=== PATIENT | male | born 1975 | race Caucasian/White ===

== ENCOUNTER 2018-07-07 03:21 | Observation (INO) | payer BC ==
[2018-07-07] MEDS ORDERED: ASPIRIN 81 MG PO STA (03:39)
--- NOTE | 2018-07-07 03:41 | ED ---
Chest Pain HPI - General Chief Complaint: Chest Pain Stated Complaint: chest pain Time Seen by Provider: 07/07/18 03:39 Source: patient Mode of arrival: ambulatory Limitations: no limitations - History of Present Illness Initial Comments: This patient's 42-year-old man who presents to be evaluated for chest pain. The patient states that he has not been feeling right all day. He had gone to work and then noted that he was having some upper abdominal pain and nausea. Later, before he left work he noticed that there was some left-sided chest discomfort. The patient states that he was also having some nausea. States she may also have briefly felt sweaty. When the symptoms did not resolve after arriving home he felt he should be evaluated here. Patient denies having any previous stress test or heart catheterization. MD Complaint: chest pain Onset/Timin -: hour(s) Onset: other (While at work) Pain Location: left chest Pain Radiation: none Severity: moderate Quality: heaviness Consistency: constant Improves With: nothing Worsens With: nothing Anginal Symptoms: nausea Treatments Prior to Arrival: none - Related Data Allergies Allergy/AdvReac Type Severity Reaction Status Date / Time No Known Allergies Allergy Verified 07/07/18 04:14 Review of Systems ROS Statement: Those systems with pertinent positive or pertinent negative responses have been documented in the HPI. ROS Other: All systems not noted in ROS Statement are negative. Constitutional: Denies: fever, chills Respiratory: Denies: cough, dyspnea Cardiovascular: Reports: as per HPI, chest pain. Denies: palpitations, edema, syncope Gastrointestinal: Reports: as per HPI, abdominal pain, nausea. Denies: vomiting , diarrhea Genitourinary: Denies: dysuria, hematuria Musculoskeletal: Denies: back pain Skin: Denies: rash Neurological: Denies: headache, weakness, numbness EKG Findings - EKG Results: EKG: interpreted by ERMD, sinus rhythm (Rate 91 bpm), normal axis, normal ST/T - Blocks, [place], Hypertrophy, ST Abn: AV and intraventricular conduction: right bundle branch block (fixed/ intermittent, complete/incomplete) (Incomplete) Chamber hypertrophy or enlargement: left ventricular hypertrophy or enlargement (LVE) Past Medical History Past Medical History: Hyperlipidemia Additional Past Medical History / Comment(s): HIV History of Any Multi-Drug Resistant Organisms: None Reported Past Surgical History: Hernia Repair Past Psychological History: No Psychological Hx Reported Smoking Status: Current every day smoker Past Alcohol Use History: Occasional Past Drug Use History: Methamphetamine General Exam Limitations: no limitations General appearance: alert, in no apparent distress Head exam: Present: atraumatic, normocephalic Eye exam: Present: normal appearance. Absent: scleral icterus, conjunctival injection ENT exam: Present: normal oropharynx Neck exam: Present: normal inspection Respiratory exam: Present: normal lung sounds bilaterally. Absent: respiratory distress, wheezes, rales, rhonchi, stridor Cardiovascular Exam: Present: regular rate, normal rhythm, normal heart sounds. Absent: systolic murmur, diastolic murmur, rubs, gallop GI/Abdominal exam: Present: soft. Absent: distended, tenderness, guarding, rebound, rigid, mass Extremities exam: Present: normal inspection, normal capillary refill. Absent: pedal edema, calf tenderness Back exam: Present: normal inspection. Absent: CVA tenderness (R), CVA tenderness (L) Neurological exam: Present: alert Skin exam: Present: warm, dry, intact, normal color. Absent: rash Course Vital Signs 07/07/18 07/07/18 07/07/18 03:29 03:30 05:34 Temperature 98.3 F Pulse Rate 97 64 Pulse Rate [ 74 Customer Account Administrator ] Respiratory 19 18 Rate Blood Pressure 149/89 119/68 O2 Sat by Pulse 100 100 Oximetry 07/07/18 06:05 Temperature Pulse Rate 68 Pulse Rate [ Customer Account Administrator ] Respiratory 18 Rate Blood Pressure 113/77 O2 Sat by Pulse 99 Oximetry Disposition Clinical Impression: Chest pain Disposition: ADMITTED IP TO THIS HOSP Condition: Good Instructions: Chest Pain (ED) Is patient prescribed a controlled substance at d/c from ED?: No Referrals: Nonstaff,Physician [REFERRING] - 1-2 days
[2018-07-07 04:12] LABS: Basophils # (A) 0.1 k/uL (0-0.2); Basophils % (A) 1 %; Eosinophils # (A) 0.3 k/uL (0-0.7); Eosinophils % (A) 4 %; HCT 46.3 % (39.0-53.0); HGB 16.1 gm/dL (13.0-17.5); Lymphocytes # (A) 2.2 k/uL (1.0-4.8); Lymphocytes % (A) 26 %; MCH 34.5 pg (25.0-35.0); MCHC 34.8 g/dL (31.0-37.0); MCV 99.2 fL (80.0-100.0); Monocytes # (A) 0.6 k/uL (0-1.0); Monocytes % (A) 7 %; Neutrophils % (A) 60 %; Platelet Count 257 k/uL (150-450); RBC 4.67 m/uL (4.30-5.90); RDW 12.5 % (11.5-15.5); WBC 8.4 k/uL (3.8-10.6)
[2018-07-07 04:19] LABS: ALT 33 U/L (21-72); AST 27 U/L (17-59); Albumin 4.8 g/dL (3.5-5.0); Alkaline Phosphatase 76 U/L (38-126); Anion Gap 10 mmol/L; Blood Urea Nitrogen 13 mg/dL (9-20); Calcium 10.3 mg/dL (8.4-10.2); Carbon Dioxide 27 mmol/L (22-30); Chloride 102 mmol/L (98-107); Glucose 128 mg/dL (74-99); Magnesium 2.1 mg/dL (1.6-2.3); Sodium 139 mmol/L (137-145); Total Bilirubin 0.7 mg/dL (0.2-1.3); Total Protein 7.7 g/dL (6.3-8.2)
--- NOTE | 2018-07-07 04:19 | XR ---
EXAM: XR Chest, 1 View CLINICAL HISTORY: Chest pain TECHNIQUE: Frontal view of the chest. COMPARISON: No relevant prior studies available. FINDINGS: Lungs: Unremarkable. No consolidation. Pleural space: Unremarkable. No pneumothorax. Heart: Unremarkable. No cardiomegaly. Mediastinum: Unremarkable. Bones/joints: Unremarkable. IMPRESSION: Normal chest x-ray.
[2018-07-07 04:29] LABS: Creatine Kinase 243 U/L (55-170)
[2018-07-07 04:31] LABS: INR 0.9 (<1.2); Partial Thromboplastin Time 22.4 sec (22.0-30.0)
[2018-07-07 04:43] LABS: Creatine Kinase MB 2.1 ng/mL (0.0-2.4); Troponin I <0.012 ng/mL (0.000-0.034)
[2018-07-07 05:23] LABS: Amylase 38 U/L (30-110); Lipase 133 U/L (23-300)
[2018-07-07 05:38] VITALS: RESP 18
[2018-07-07] MEDS ORDERED: NITROGLYCERIN SL TABS 0.4 MG TAB SUBLINGUAL PRN (06:03)
[2018-07-07 07:49] VITALS: BMI 20.9
[2018-07-07 08:16] VITALS: BP 123/73; PULSE 67; TEMP 98.2
[2018-07-07 09:34] LABS: Creatine Kinase 178 U/L (55-170)
[2018-07-07 09:47] LABS: Creatine Kinase MB 1.4 ng/mL (0.0-2.4); Troponin I <0.012 ng/mL (0.000-0.034)
--- NOTE | 2018-07-07 11:36 | P.CRDCN ---
History of Present Illness History of present illness: This is a pleasant 42-year-old male past medical history significant for dyslipidemia and chronic nicotine dependence. He states he smoke 1.2 pack per day for 25 years. He denies history of coronary artery disease, hypertension or diabetes mellitus. He has never seen a sales engineering manager for any reason. We have been asked to see him in consultation for chest pain. He states he was at work yesterday in his normal state of health. He works as a hilo crew truck driver. While riding on his hilo he started feeling a tight squeezing sensation in this left precordial region. The pain was constant and persistent all day yesterday with no specific aggravating or alleviating factors. There was no radiation to his arm, back, neck or jaw. He did feel mildly short of breath all day as well as intermittent nausea and a clammy sensation to both hands. He denies worsening pain with deep inspiration. He denies dizziness, palpitations or vomiting. He has been coughing more so in the last few days than usual. No sputum production. At the time of my exam he continues to feel an achy discomfort in his chest. EKG reveals right bundle branch block pattern with left ventricular hypertrophy. Chest x-ray negative for an acute cardiopulmonary process. Laboratory data reviewed, WBC 8.4, hemoglobin 16.1, platelets 257, d-dimer 0.24 , sodium 139, potassium 4.0, creatinine 0.99, magnesium 2.1, cardiac enzymes negative 2. Current cardiac medications include atorvastatin 20 mg daily. At the time of my exam: CONSTITUTIONAL: Denies fever. Denies chills. EYES: Denies blurred vision. Denies vision changes. Denies eye pain. EARS, NOSE, MOUTH & THROAT: Denies headache. Denies sore throat. Denies ear pain. CARDIOVASCULAR: Complains of achy chest discomfort. Denies shortness of breath. Denies orthopnea. Denies PND. Denies palpitations. RESPIRATORY: Denies cough. GASTROINTESTINAL: Denies abdominal pain. Denies diarrhea. Denies constipation. Denies nausea. Denies vomiting. MUSCULOSKELETAL: Denies myalgias. INTEGUMENTARY: Denies pruitis. Denies rash. NEUROLOGIC: Denies numbness. Denies tingling. Denies weakness. PSYCHIATRIC: Denies anxiety. Denies depression. ENDOCRINE: Denies fatigue. Denies weight change. Denies polydipsia. Denies polyurina. GENITOURINARY: Denies burning, hematuria or urgency with micturation. HEMATOLOGIC: Denies history of anemia. Denies bleeding. Blood pressure 123/73 heart rate 67 afebrile 18 oxygen saturation on room air GENERAL: This is a 42-year-old male in no apparent distress at the time of my examination. HEENT: Head is atraumatic, normocephalic. Pupils are equal, round. Sclerae anicteric. Conjunctivae are clear. Mucous membranes of the mouth are moist. Neck is supple. There is no jugular venous distention. No carotid bruit is heard. LUNGS: Clear to auscultation no wheezes, rales or rhonchi. No chest wall tenderness is noted on palpation or with deep breathing. HEART: Regular rate and rhythm without murmurs, rubs or gallops. S1 and S2 heard. ABDOMEN: Soft, nontender. Bowel sounds are heard. No organomegaly noted. EXTREMITIES: No evidence of peripheral edema and no calf tenderness noted. VASCULAR: Radial and dorsalis pedis pulses palpated, no evidence of clubbing. NEUROLOGIC: Patient is awake, alert and oriented x3. ASSESSMENT Chest pain, atypical. An acute coronary event has been ruled out. Dyslipidemia Chronic nicotine dependence PLAN An acute coronary event has been ruled out. Obtain 2D echocardiogram and doppler study to assess cardiac structure and function. Perform stress echocardiogram to assess for stress induced ischemia. Check lipid panel. Smoking cessation recommended. If stress test is normal he is stable from a cardiac perspective. Thank you kindly for this consultation. Nurse Practitioner note has been reviewed, I agree with a documented findings and plan of care. Patient was seen and examined. Past Medical History Past Medical History: Hyperlipidemia Additional Past Medical History / Comment(s): HIV, kidney stones History of Any Multi-Drug Resistant Organisms: None Reported Past Surgical History: Hernia Repair Past Anesthesia/Blood Transfusion Reactions: No Reported Reaction Past Psychological History: No Psychological Hx Reported Smoking Status: Current every day smoker Past Alcohol Use History: Occasional Additional Past Alcohol Use History / Comment(s): pt states he does meth every once in awhile. pt states he has smoked since he was 18 and smokes around a 1/2 a pack per day. Past Drug Use History: Methamphetamine Medications and Allergies Home Medications Medication Instructions Recorded Confirmed Type Atorvastatin Calcium [Lipitor] 20 mg PO HS 12/18/18 12/18/18 History Elviteg/Cob/Emtri/Tenof Alafen 1 tab PO HS 07/07/18 07/07/18 History [Genvoya Tablet] Allergies Allergy/AdvReac Type Severity Reaction Status Date / Time No Known Allergies Allergy Verified 07/07/18 07:15 Physical Exam Vitals: Vital Signs Temp Pulse Pulse Resp BP BP Pulse Ox 07/07/18 07:20 98.2 F 67 18 123/73 96 07/07/18 06:05 68 18 113/77 99 07/07/18 05:34 64 18 119/68 100 07/07/18 03:30 74 07/07/18 03:29 98.3 F 97 19 149/89 100 Intake and Output 07/06/18 07/07/18 07/07/18 22:59 06:59 14:59 Other: Weight 62.596 kg 62.596 kg Results 07/07/18 03:45 07/07/18 03:45 Cardiac Enzymes 07/07/18 07/07/18 Range/Units 03:45 03:45 AST 27 (17-59) U/L CK-MB (CK-2) 2.1 (0.0-2.4) ng/mL Troponin I <0.012 (0.000-0.034) ng/mL Coagulation 07/07/18 Range/Units 03:45 PT 10.0 (9.0-12.0) sec APTT 22.4 (22.0-30.0) sec CBC 07/07/18 Range/Units 03:45 WBC 8.4 (3.8-10.6) k/uL RBC 4.67 (4.30-5.90) m/uL Hgb 16.1 (13.0-17.5) gm/dL Hct 46.3 (39.0-53.0) % Plt Count 257 (150-450) k/uL Comprehensive Metabolic Panel 07/07/18 Range/Units 03:45 Sodium 139 (137-145) mmol/L Potassium 4.0 (3.5-5.1) mmol/L Chloride 102 (98-107) mmol/L Carbon Dioxide 27 (22-30) mmol/L BUN 13 (9-20) mg/dL Creatinine 0.99 (0.66-1.25) mg/dL Glucose 128 H (74-99) mg/dL Calcium 10.3 H (8.4-10.2) mg/dL AST 27 (17-59) U/L ALT 33 (21-72) U/L Alkaline Phosphatase 76 (38-126) U/L Total Protein 7.7 (6.3-8.2) g/dL Albumin 4.8 (3.5-5.0) g/dL Current Medications Generic Name Dose Route Start Last Admin Trade Name Freq PRN Reason Stop Dose Admin Aspirin 325 mg 07/08/18 09:00 Aspirin PO DAILY DIAMANTE Nitroglycerin 0.4 mg 07/07/18 06:03 Nitrostat SUBLINGUAL Q5M PRN Chest Pain Intake and Output 07/06/18 07/07/18 07/07/18 22:59 06:59 14:59 Other: Weight 62.596 kg 62.596 kg Patient Weight 07/08/18 06:59 Weight 62.596 kg 07/07/18 03:45 07/07/18 03:45
[2018-07-07 12:14] LABS: Cholesterol 138 mg/dL (<200); HDL Cholesterol 45 mg/dL (40-60); LDL Cholesterol,Calculated 60 mg/dL (0-99); Triglycerides 163 mg/dL (<150)
--- NOTE | 2018-07-07 12:46 | ECHOF ---
Referral Reason: MEASUREMENTS -------- HEIGHT: 172.7 cm WEIGHT: 62.6 kg BP: 123/73 RVIDd: 2.3 cm (< 3.3) IVSd: 1.0 cm (0.6 - 1.1) LVIDd: 4.2 cm (3.9 - 5.3) LVPWd: 1.0 cm (0.6 - 1.1) IVSs: 1.1 cm LVIDs: 3.1 cm LVPWs: 1.3 cm LAESV Index (A-L): 17.62 ml/m Ao Diam: 3.2 cm (2.0 - 3.7) AV Cusp: 2.1 cm (1.5 - 2.6) LA Diam: 1.9 cm (2.7 - 3.8) MV E Kirill: 0.77 m/s MV DecT: 208 ms MV A Kirill: 0.57 m/s MV E/A Ratio: 1.35 RAP: 5.00 mmHg RVSP: 11.89 mmHg FINDINGS -------- Sinus rhythm. This was a technically good study. The left ventricular size is normal. Left ventricular wall thickness is normal. Overall left vent ricular systolic function is normal with, an EF between 55 - 60 %. The right ventricle is normal in size and function. Normal LA size by volume 22+/-6 ml/m2. The right atrium is normal in size. The aortic valve is trileaflet, and appears structurally normal. No aortic stenosis or regurgitation. The mitral valve leaflets are mildly thickened. There is trace mitral regurgitation. Trace tricuspid regurgitation present. Right ventricular systolic pressure is normal at < 35 mmHg. There is no evidence of pulmonary hypertension. The pulmonic valve was not well visualized. The aortic root size is normal. Normal inferior vena cava with normal inspiratory collapse consistent with estimated right atrial pre ssure of 5 mmHg. There is no pericardial effusion. CONCLUSIONS -------- 1. Sinus rhythm. 2. This was a technically good study. 3. The left ventricular size is normal. 4. Left ventricular wall thickness is normal. 5. Overall left ventricular systolic function is normal with, an EF between 55 - 60 %. 6. Normal LA size by volume 22+/-6 ml/m2. 7. The aortic valve is trileaflet, and appears structurally normal. No aortic stenosis or regurgitati on. 8. The mitral valve leaflets are mildly thickened. 9. There is trace mitral regurgitation. 10. Trace tricuspid regurgitation present. 11. Right ventricular systolic pressure is normal at < 35 mmHg. 12. There is no evidence of pulmonary hypertension. 13. The pulmonic valve was not well visualized. 14. The aortic root size is normal. 15. There is no pericardial effusion. TEACHER ASSISTANT: Jason Johnson RDCS
--- NOTE | 2018-07-07 13:20 | ECHOS ---
STRESS ECHOCARDIOGRAM DATE OF SERVICE: 07/07/2018 INDICATIONS: Chest pain. MEDICATIONS: BASELINE HEART RATE: 62 BASELINE BLOOD PRESSURE: 110/57 MAXIMUM HEART RATE: 160 MAXIMUM BLOOD PRESSURE: 167/67 85% MPHR: 152 100% MPHR: 179 METS: 12.9 MAXIMUM STAGE REACHED: IV TOTAL EXERCISE TIME: 12 minutes 42 seconds CLINICAL INFORMATION: The patient was exercised for a total period of 12 minutes and 42 seconds. Peak heart rate of 160 was achieved. Maximum blood pressure of 167/67 mmHg is noted. The resting EKG shows normal sinus rhythm with normal CO interval and QRS duration and normal ST-T waves. No ST-segment depression suggestive of ischemia is noted. The baseline echocardiographic images reveal left ventricular chamber size with normal left ventricular systolic function. In the immediate postexercise periods, normal increase in the wall thickness and contractility is noted. FINAL IMPRESSION: 1. This stress echocardiographic study is negative for stress-induced ischemia. 2. EKG portion of the stress test is not suggestive of ischemia. 3. The patient's exercise tolerance is excellent. MMODL / IJN: [id number] /
--- NOTE | 2018-07-07 14:47 | P.HPIM ---
History of Present Illness H&P Date: 07/07/18 Chief Complaint: Chest pain Physical pleasant 42-year-old gentleman past medical history significant for hyperlipidemia and HIV comes in with above-mentioned complaints. The patient says that he was not feeling right all day yesterday. He was at work when he notices that he is having just been less of the chest and upper abdominal pain. He said he was also nauseous and diaphoretic along with it. He said that he was nauseous but not vomiting. He did not otherwise complain of any lightheadedness or dizzinessof that he was less short of breath but nothing otherwise. He did not complain of any tingling numbness in his extremities, no itch or rash. Patient had EKG done in the ER which showed a residual changes. His troponins were negative. Patient was admitted to the hospitalist service a further evaluation and management Past Medical History Past Medical History: Hyperlipidemia Additional Past Medical History / Comment(s): HIV, kidney stones History of Any Multi-Drug Resistant Organisms: None Reported Past Surgical History: Hernia Repair Past Anesthesia/Blood Transfusion Reactions: No Reported Reaction Past Psychological History: No Psychological Hx Reported Smoking Status: Current every day smoker Past Alcohol Use History: Occasional Additional Past Alcohol Use History / Comment(s): pt states he does meth every once in awhile. pt states he has smoked since he was 18 and smokes around a 1/2 a pack per day. Past Drug Use History: Methamphetamine Medications and Allergies Home Medications Medication Instructions Recorded Confirmed Type Atorvastatin Calcium [Lipitor] 20 mg PO HS 07/07/18 07/07/18 History Elviteg/Cob/Emtri/Tenof Alafen 1 tab PO HS 07/07/18 07/07/18 History [Genvoya Tablet] Allergies Allergy/AdvReac Type Severity Reaction Status Date / Time No Known Allergies Allergy Verified 07/07/18 07:15 Physical Exam Vitals: Vital Signs Temp Pulse Pulse Resp BP BP Pulse Ox 07/07/18 12:00 67 18 07/07/18 08:00 67 18 07/07/18 07:20 98.2 F 67 18 123/73 96 07/07/18 06:05 68 18 113/77 99 07/07/18 05:34 64 18 119/68 100 07/07/18 03:30 74 07/07/18 03:29 98.3 F 97 19 149/89 100 Intake and Output 07/06/18 07/07/18 07/07/18 22:59 06:59 14:59 Other: Voiding Method Toilet Weight 62.596 kg 62.596 kg General examination. Patient is alert oriented 3 he appears in no apparent distress HEENT-head atraumatic normocephalic no pallor no icterus, no pain or discharge from the ear or nose Throat-no erythema no exudate in the throat Neck-no JVD no neck enlargement or thyroid enlargement CVS S1-S2 positive Abdomen-soft nontender bowel sounds present Respiration-normal breath sounds heard equally, no rhonchi no rales no wheezing, Neuro-cranial nerves II through XII intact strength equal in both upper and lower extremities, reflexes positive both upper and lower extremities Extremities-no edema pulses positive Skin-dry intact no rash Results CBC & Chem 7: 07/07/18 03:45 07/07/18 03:45 Labs: Abnormal Lab Results - Last 24 Hours (Table) 07/07/18 07/07/18 07/07/18 Range/Units 03:45 03:45 03:45 Glucose 128 H (74-99) mg/dL Calcium 10.3 H (8.4-10.2) mg/dL Total Creatine Kinase 243 H (55-170) U/L Triglycerides 163 H (<150) mg/dL 07/07/18 Range/Units 08:47 Glucose (74-99) mg/dL Calcium (8.4-10.2) mg/dL Total Creatine Kinase 178 H (55-170) U/L Triglycerides (<150) mg/dL Thrombosis Risk Factor Assmnt - DVT/VTE Prophylaxis DVT/VTE Prophylaxis: Low risk, early ambulation encouraged - Choose All That Apply Any of the Below Risk Factors Present?: Yes Each Factor Represents 1 point: Age 41-60 years Other Risk Factors: No Other congenital or acquired thrombophilia - If yes, enter type in comment: No Thrombosis Risk Factor Assessment Total Risk Factor Score: 1 Thrombosis Risk Factor Assessment Level: Low Risk Assessment and Plan Assessment: Chest pain need to rule out cardiac causes Hyperlipidemia HIV Plan: - Patient admitted to observation - Cardiology consulted - Stress test ordered - We'll also order for d-dimer - Resume all medications - DVT and GI prophylaxis - We'll monitor the patient Time with Patient: Greater than 30
--- NOTE | 2018-07-07 14:53 | P.DS ---
Providers Date of admission: 07/07/18 04:43 Expected date of discharge: 07/07/18 Attending physician: Raghavendra Vasquez Consults: 07/07/18 06:03 Consult Physician Routine Consulting Provider: Dianna Nelson Consult Reason/Comments: chest pain Do you want consulting provider notified?: Yes Primary care physician: Anita Esteves [facility] Course: 42-year-old gentleman admitted for chest pain. He was admitted to observation. Troponins were which were negative. Cardiology is consulted who did a stress test which was negative. Patient will be discharged if okay with cardiology. Patient Condition at Discharge: Good Plan - Discharge Summary Discharge Rx Participant: No New Discharge Prescriptions: New Aspirin 325 mg PO DAILY tab Nitroglycerin Sl Tabs [Nitrostat] 0.4 mg SUBLINGUAL Q5M PRN tab PRN Reason: Chest Pain Continue Atorvastatin Calcium [Lipitor] 20 mg PO HS Elviteg/Cob/Emtri/Tenof Alafen [Genvoya Tablet] 1 tab PO HS Discharge Medication List Aspirin 325 mg PO DAILY tab 07/07/18 [Rx] Atorvastatin Calcium [Lipitor] 20 mg PO HS 07/07/18 [History] Elviteg/Cob/Emtri/Tenof Alafen [Genvoya Tablet] 1 tab PO HS 07/07/18 [History] Nitroglycerin Sl Tabs [Nitrostat] 0.4 mg SUBLINGUAL Q5M PRN tab 07/07/18 [Rx] Follow up Appointment(s)/Referral(s): Nonstaff,Physician [REFERRING] - 1-2 days Activity/Diet/Wound Care/Special Instructions: Pending final DC recommendation and clearance from cardiology Discharge Disposition: HOME SELF-CARE
[2018-07-07] MEDS ORDERED: [UNRECOGNIZED DRUG - OTHER] PO SCH (21:00)
[2018-07-07] MEDS ORDERED: ATORVASTATIN 20 MG TAB PO SCH (21:00)
[2018-07-08] MEDS ORDERED: ASPIRIN 325 MG TAB PO SCH (09:00)
== END 2018-07-07 16:06 | disposition home or self-care (01) ==
LOC: EC 03:21 → 1SOBS 04:43
PROVIDERS: ADMIT Hospitalist; ATTEND Hospitalist
DX: R07.2 Precordial pain (principal); E78.5 Hyperlipidemia, unspecified; R10.10 Upper abdominal pain, unspecified; R11.0 Nausea; R23.1 Pallor; R05 Cough; R61 Generalized hyperhidrosis; R06.02 Shortness of breath; B20 Human immunodeficiency virus [HIV] disease; Z87.442 Personal history of urinary calculi; F17.210 Nicotine dependence, cigarettes, uncomplicated; Z79.899 Other long term (current) drug therapy
CPT/HCPCS: 36415; 71045; 80053; 80061; 82150; 82550; 82553; 83690; 83735; 84484; 85025; 85379; 85610; 85730; 93005; 93306; 93351; 99285

== ENCOUNTER → 2018-09-02 | Outpatient (CLI) | payer OTHER ==
--- NOTE | 2018-09-02 14:01 | CT ---
EXAMINATION TYPE: CT wrist LT wo con DATE OF EXAM: 09/02/2018 COMPARISON: 08/20/2018 radiographs HISTORY: 42-year-old male with left wrist pain post fall TECHNIQUE: Contiguous axial scanning of the left wrist without IV contrast. Coronal and sagittal heber nstructions performed. 3-D reconstructions generated on a dedicated independent workstation. CT DLP: 138 mGycm Automated exposure control for dose reduction was used. FINDINGS: Overlying fiberglass cast with the wrist in radial deviation. There is a nondisplaced fracture through the scaphoid waist. No abnormal sclerosis or fragmentation o f the proximal pole. Fracture lucency remains well visualized. There is persistent radial sided soft tissue swelling. No additional acute fracture, subluxation, or dislocation seen. IMPRESSION: NONDISPLACED TRANSVERSE FRACTURE THROUGH THE SCAPHOID WAIST. NO FINDINGS TO SUGGEST AVN. ASSOCIATED S OFT TISSUE SWELLING. THE WRIST IS CAST IN RADIAL DEVIATION.
== END | disposition home or self-care (01) ==
LOC: RADCTMAIN 13:01
PROVIDERS: ATTEND Orthopaedic Surgery
DX: S62.002A Unspecified fracture of navicular [scaphoid] bone of left wrist, initial encounter for closed fracture (principal); M79.89 Other specified soft tissue disorders; M25.522 Pain in left elbow

== ENCOUNTER → 2018-12-15 | Outpatient (CLI) | payer BC, OTHER ==
--- NOTE | 2018-12-15 10:58 | CT ---
EXAMINATION TYPE: CT wrist LT wo con DATE OF EXAM: 12/15/2018 COMPARISON: CT left wrist September 02, 2018. HISTORY: Nondisplaced fracture middle third of scaphoid, subsequent encounter for fracture with routi ne healing, left wrist pain, displaced fracture of radial head all per order. CT DLP: 76.4 mGycm Automated exposure control for dose reduction was used. FINDINGS: There is been interval surgery with fixating screw through the scaphoid through healed fracture as th ere is interval resorption of linear lucency. Alignment is stable and satisfactory. Proximal pole cecy ws no increased sclerosis. Nonspecific 3 mm sclerotic focus base of capitate redemonstrated favoring benign bone island. Carpal joint spaces are maintained. Lunate capitate relationship is preserved. No displaced fracture through distal radius observed on this or prior study. IMPRESSION: INTERVAL ROUTINE HEALING OF NONDISPLACED SCAPHOID FRACTURE. NO NEW FRACTURE IDENTIFIED.
== END ==
LOC: RADCTMAIN 08:19
PROVIDERS: ATTEND Orthopaedic Surgery
DX: S62.025D Nondisplaced fracture of middle third of navicular [scaphoid] bone of left wrist, subsequent encounter for fracture with routine healing (principal)

== ENCOUNTER 2021-11-17 15:10 | Emergency (ER) | payer BC ==
[2021-11-17 15:14] VITALS: TEMP 98.2
[2021-11-17] MEDS ORDERED: METOCLOPRAMIDE 5 MG/ML 2 ML VIAL IVP STA (15:36)
[2021-11-17] MEDS ORDERED: SODIUM CHLORIDE 0.9% 1,000 ML IV STA (15:36)
[2021-11-17] MEDS ORDERED: KETOROLAC 15 MG/ML 1 ML VIAL IVP STA (15:36)
--- NOTE | 2021-11-17 15:40 | ED ---
General Adult HPI - General Chief complaint: Abdominal Pain Stated complaint: L sided abd/back pain Time Seen by Provider: 11/17/21 15:27 Source: patient, RN notes reviewed Mode of arrival: ambulatory Limitations: no limitations - History of Present Illness Initial comments: Patient is a pleasant 46-year-old male presenting to the emergency department w ith left flank pain. Patient had mild discomfort when he woke this morning. Patient urinated around 2 PM with increasing discomfort. Discomfort is now becoming severe. Patient is nauseous and did vomit once. No hematuria. No dysuria. Patient does have history of similar symptoms once previously associated with kidney stone. - Related Data Home Medications Medication Instructions Recorded Confirmed Atorvastatin Calcium [Lipitor] 20 mg PO HS 07/07/18 07/07/18 Elviteg/Cob/Emtri/Tenof Alafen 1 tab PO HS 07/07/18 07/07/18 [Genvoya Tablet] Previous Rx's Medication Instructions Recorded Aspirin 325 mg PO DAILY tab 07/07/18 Ketorolac [Toradol] 10 mg PO Q6HR PRN #15 tab 11/17/21 Metoclopramide HCl [Reglan] 10 mg PO Q6HR PRN #15 tablet 11/17/21 Tamsulosin [Flomax] 0.4 mg PO DAILY #14 cap 11/17/21 Allergies Allergy/AdvReac Type Severity Reaction Status Date / Time No Known Allergies Allergy Verified 11/17/21 15:14 Review of Systems ROS Statement: Those systems with pertinent positive or pertinent negative responses have been documented in the HPI. ROS Other: All systems not noted in ROS Statement are negative. Constitutional: Denies: fever Eyes: Denies: eye pain ENT: Denies: ear pain Respiratory: Denies: cough Cardiovascular: Denies: chest pain Endocrine: Denies: fatigue Gastrointestinal: Reports: as per HPI, abdominal pain, nausea, vomiting. Denies: diarrhea, constipation Genitourinary: Denies: dysuria Musculoskeletal: Denies: back pain Skin: Denies: rash Neurological: Denies: weakness Past Medical History Past Medical History: Hyperlipidemia Additional Past Medical History / Comment(s): HIV, kidney stones History of Any Multi-Drug Resistant Organisms: None Reported Past Surgical History: Hernia Repair Past Anesthesia/Blood Transfusion Reactions: No Reported Reaction Past Psychological History: No Psychological Hx Reported Smoking Status: Current every day smoker Past Alcohol Use History: Occasional Past Drug Use History: Methamphetamine General Exam Limitations: no limitations General appearance: alert, other (Patient does appear uncomfortable) Head exam: Present: normocephalic Eye exam: Present: normal appearance Neck exam: Present: normal inspection Respiratory exam: Present: normal lung sounds bilaterally Cardiovascular Exam: Present: regular rate, normal rhythm Expanded Peripheral pulses: 2+: Dorsalis Pedis (R), Dorsalis Pedis (L) GI/Abdominal exam: Present: soft. Absent: distended, tenderness, guarding, rebound, rigid, pulsatile mass Extremities exam: Present: normal inspection. Absent: pedal edema, calf tenderness Neurological exam: Present: alert Psychiatric exam: Present: normal affect, normal mood Skin exam: Present: normal color Course Vital Signs 11/17/21 11/17/21 15:12 16:14 Temperature 98.2 F Pulse Rate 90 64 Respiratory 22 18 Rate Blood Pressure 124/69 116/86 O2 Sat by Pulse 98 97 Oximetry Medical Decision Making - Medical Decision Making Patient reevaluated and resting comfortably in bed. Patient states symptoms are tolerable and he is comfortable with discharge home. Patient updated on need for follow-up - Lab Data Result diagrams: 11/17/21 15:43 11/17/21 15:43 Lab Results 11/17/21 11/17/21 11/17/21 Range/Units 15:43 15:43 15:43 WBC 10.2 (3.8-10.6) k/uL RBC 4.60 (4.30-5.90) m/uL Hgb 15.3 (13.0-17.5) gm/dL Hct 46.0 (39.0-53.0) % MCV 100.1 H (80.0-100.0) fL MCH 33.4 (25.0-35.0) pg MCHC 33.3 (31.0-37.0) g/dL RDW 13.1 (11.5-15.5) % Plt Count 288 (150-450) k/uL MPV 7.4 Neutrophils % 77 % Lymphocytes % 15 % Monocytes % 5 % Eosinophils % 1 % Basophils % 1 % Neutrophils # 7.9 H (1.3-7.7) k/uL Lymphocytes # 1.5 (1.0-4.8) k/uL Monocytes # 0.5 (0-1.0) k/uL Eosinophils # 0.1 (0-0.7) k/uL Basophils # 0.1 (0-0.2) k/uL PT 10.6 (9.0-12.0) sec INR 1.0 (<1.2) APTT 21.9 L (22.0-30.0) sec Sodium 138 (137-145) mmol/L Potassium 3.8 (3.5-5.1) mmol/L Chloride 104 (98-107) mmol/L Carbon Dioxide 23 (22-30) mmol/L Anion Gap 11 mmol/L BUN 15 (9-20) mg/dL Creatinine 1.15 (0.66-1.25) mg/dL Est GFR (CKD-EPI)AfAm 89 (>60 ml/min/1.73 sqM) Est GFR (CKD-EPI)NonAf 77 (>60 ml/min/1.73 sqM) Glucose 103 H (74-99) mg/dL Calcium 9.9 (8.4-10.2) mg/dL Total Bilirubin 0.9 (0.2-1.3) mg/dL AST 24 (17-59) U/L ALT 21 (4-49) U/L Alkaline Phosphatase 82 (38-126) U/L Total Protein 7.6 (6.3-8.2) g/dL Albumin 4.6 (3.5-5.0) g/dL Amylase 46 (30-110) U/L Lipase 66 (23-300) U/L - Radiology Data Radiology results: image reviewed (CT shows 8.4 mm obstructing left UPJ calculi with moderate hydronephrosis.) Disposition Clinical Impression: Ureterolithiasis Disposition: HOME SELF-CARE Condition: Stable Instructions (If sedation given, give patient instructions): Kidney Stones (ED) Additional Instructions: Prescriptions have been sent to pharmacy. Please do follow-up with primary care physician in the next couple days for recheck. Please also follow-up with urologist and had urologist review the films. Return for fever, uncontrolled pain or vomiting, worsening symptoms or other concerns. Prescriptions: Tamsulosin [Flomax] 0.4 mg PO DAILY #14 cap Metoclopramide HCl [Reglan] 10 mg PO Q6HR PRN #15 tablet PRN Reason: Nausea Ketorolac [Toradol] 10 mg PO Q6HR PRN #15 tab PRN Reason: Pain Is patient prescribed a controlled substance at d/c from ED?: No Referrals: Yarely Howard MD [Primary Care Provider] - 1-2 days Miguel Angel Pierce MD [STAFF PHYSICIAN] - 1-2 days Time of Disposition: 16:53
[2021-11-17 15:59] LABS: Basophils # (A) 0.1 k/uL (0-0.2); Basophils % (A) 1 %; Eosinophils # (A) 0.1 k/uL (0-0.7); Eosinophils % (A) 1 %; HGB 15.3 gm/dL (13.0-17.5); Lymphocytes # (A) 1.5 k/uL (1.0-4.8); Lymphocytes % (A) 15 %; MCH 33.4 pg (25.0-35.0); MCHC 33.3 g/dL (31.0-37.0); MCV 100.1 fL (80.0-100.0); Mean Platelet Volume 7.4; Monocytes # (A) 0.5 k/uL (0-1.0); Monocytes % (A) 5 %; Neutrophils # (A) 7.9 k/uL (1.3-7.7); Neutrophils % (A) 77 %; Platelet Count 288 k/uL (150-450); RDW 13.1 % (11.5-15.5); WBC 10.2 k/uL (3.8-10.6)
--- NOTE | 2021-11-17 16:09 | CT ---
EXAMINATION TYPE: CT abdomen pelvis wo con DATE OF EXAM: 11/17/2021 COMPARISON: None HISTORY: Left flank pain. CT DLP: 380.5 mGycm Automated exposure control for dose reduction was used. TECHNIQUE: Helical acquisition of images was performed from the lung bases through the pelvis. FINDINGS: The lung bases are clear. There is moderate left hydronephrosis secondary to an 8.4 mm left UVJ obstructing calculus. There are no right renal calcifications. There is no retroperitoneal adenopathy or hemorrhage in the caliber o f the abdominal aorta is normal. Gallbladder is normal. There is no organomegaly involving the solid visceral organs of the upper abdo men. The bowel loops are normal and there is no obstruction or inflammation. There is no free intraperitoneal air or fluid. No pelvic mass or adenopathy. There is moderate prostatic hypertrophy and mild to moderate prostatic calcification. The osseous structures are intact. IMPRESSION: 8.4 mm obstructing left UPJ calculus resulting in moderate left hydronephrosis. No other significant abnormality seen.
[2021-11-17 16:10] LABS: Prothrombin Time 10.6 sec (9.0-12.0)
[2021-11-17 16:20] LABS: Albumin 4.6 g/dL (3.5-5.0); Calcium 9.9 mg/dL (8.4-10.2); Partial Thromboplastin Time 21.9 sec (22.0-30.0); Potassium 3.8 mmol/L (3.5-5.1); Total Bilirubin 0.9 mg/dL (0.2-1.3); Total Protein 7.6 g/dL (6.3-8.2)
[2021-11-17 17:10] VITALS: BP 101/62; PULSE 77; RESP 16
== END 2021-11-17 17:09 | disposition home or self-care (01) ==
LOC: EC 15:10
DX: N13.2 Hydronephrosis with renal and ureteral calculous obstruction (principal); F17.200 Nicotine dependence, unspecified, uncomplicated
CPT/HCPCS: 80053; 82150; 83690; 85025; 85610; 85730; 74176; 99284; 96374; 96375; J2765; J1885; 36415